=== PATIENT | male | born 1995 | race Caucasian/White ===

== ENCOUNTER 2022-11-03 21:38 | Emergency (ER) | payer MEDICAID ==
[~2022-11-03] VITALS: Ht 177.8 cm; Wt 77.0 kg
[2022-11-03 21:47] VITALS: BP 130/73
== END 2022-11-04 00:07 | disposition home or self-care (01) ==
LOC: ER 21:48
DX: R56.9 Unspecified convulsions (principal); R41.82 Altered mental status, unspecified; R03.0 Elevated blood-pressure reading, without diagnosis of hypertension
CPT/HCPCS: 99283